=== PATIENT | male | born 1990 | race Caucasian/White ===

== ENCOUNTER 2018-09-15 08:33 | Emergency (ER) | payer MEDICARE, OTHER ==
[~2018-09-15] VITALS: Wt 120.0 kg
[2018-09-15] MEDS ORDERED: NAPR-985 PO (09:22)
[2018-09-15] MEDS ORDERED: IBUPROFEN 600 MG TAB PO ONE (09:30)
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
[2018-09-15 09:45] VITALS: BP 129/80; PULSE 78; RESP 16
== END 2018-09-15 09:45 | disposition home or self-care (01) ==
LOC: FTE 08:33
DX: M79.10 Myalgia, unspecified site (principal)
CPT/HCPCS: 99282